=== PATIENT | male | born 1955 | race Native Hawaiian/Other Pacific Islander ===

== ENCOUNTER 2016-05-07 13:26 | Outpatient (CLI) | payer OTHER ==
[2016-05-07 13:35] LABS: PLATELET COUNT 246 K/uL (142-355)
== END 2016-05-07 19:53 | disposition home or self-care (01) ==
LOC: LAB 13:26
PROVIDERS: Nurse Practitioner
DX: D75.1 Secondary polycythemia (principal)
CPT/HCPCS: 85027

== ENCOUNTER 2016-06-05 11:08 | Outpatient (CLI) | payer OTHER ==
[2016-06-05 11:23] LABS: PLATELET COUNT 260 K/uL (142-355)
== END 2016-06-05 20:11 | disposition home or self-care (01) ==
LOC: LAB 11:08
PROVIDERS: Nurse Practitioner
DX: D75.1 Secondary polycythemia (principal)
CPT/HCPCS: 85027

== ENCOUNTER 2016-06-19 14:36 | Outpatient (CLI) | payer OTHER ==
[2016-06-19 16:18] LABS: PLATELET COUNT 250 K/uL (142-355)
== END 2016-06-19 15:36 | disposition home or self-care (01) ==
LOC: LAB 14:36
PROVIDERS: Student in an Organized Health Care Education/Training Program
DX: D75.1 Secondary polycythemia (principal); I69.331 Monoplegia of upper limb following cerebral infarction affecting right dominant side; K21.9 Gastro-esophageal reflux disease without esophagitis; I10 Essential (primary) hypertension; F41.1 Generalized anxiety disorder
CPT/HCPCS: 85027

== ENCOUNTER 2016-07-17 11:44 | Outpatient (CLI) | payer OTHER ==
[2016-07-17 12:57] LABS: PLATELET COUNT 248 K/uL (142-355)
== END 2016-07-17 19:13 | disposition home or self-care (01) ==
LOC: LAB 11:44
PROVIDERS: Nurse Practitioner
DX: D75.1 Secondary polycythemia (principal)
CPT/HCPCS: 85027

== ENCOUNTER 2016-08-29 11:06 | Outpatient (CLI) | payer OTHER ==
[2016-08-29 11:15] LABS: PLATELET COUNT 244 K/uL (142-355)
== END 2016-08-29 19:08 | disposition home or self-care (01) ==
LOC: LAB 11:06
PROVIDERS: Student in an Organized Health Care Education/Training Program
DX: D75.1 Secondary polycythemia (principal)
CPT/HCPCS: 85027

== ENCOUNTER 2016-09-24 10:38 | Outpatient (CLI) | payer OTHER ==
[2016-09-24 10:47] LABS: PLATELET COUNT 246 K/uL (142-355)
== END 2016-09-24 11:30 | disposition home or self-care (01) ==
LOC: LAB 10:38
PROVIDERS: Student in an Organized Health Care Education/Training Program
DX: D75.1 Secondary polycythemia (principal)
CPT/HCPCS: 85027

== ENCOUNTER 2016-10-22 15:13 | Outpatient (CLI) | payer OTHER ==
[2016-10-22 15:23] LABS: PLATELET COUNT 236 K/uL (142-355)
== END 2016-10-22 19:12 | disposition home or self-care (01) ==
LOC: LAB 15:13
PROVIDERS: Student in an Organized Health Care Education/Training Program
DX: D75.1 Secondary polycythemia (principal); I69.331 Monoplegia of upper limb following cerebral infarction affecting right dominant side
CPT/HCPCS: 85027

== ENCOUNTER 2016-11-26 15:44 | Outpatient (CLI) | payer OTHER ==
[2016-11-26 15:54] LABS: PLATELET COUNT 295 K/uL (142-355)
== END 2016-11-26 16:45 | disposition home or self-care (01) ==
LOC: LAB 15:44
PROVIDERS: Student in an Organized Health Care Education/Training Program
DX: D75.1 Secondary polycythemia (principal)
CPT/HCPCS: 85027

== ENCOUNTER 2016-12-24 14:03 | Outpatient (CLI) | payer OTHER ==
[2016-12-24 14:26] LABS: PLATELET COUNT 273 K/uL (142-355)
== END 2016-12-24 19:04 | disposition home or self-care (01) ==
LOC: LAB 14:03
PROVIDERS: Student in an Organized Health Care Education/Training Program
DX: D75.1 Secondary polycythemia (principal); I69.331 Monoplegia of upper limb following cerebral infarction affecting right dominant side; K21.9 Gastro-esophageal reflux disease without esophagitis; I10 Essential (primary) hypertension; F41.1 Generalized anxiety disorder
CPT/HCPCS: 85027

== ENCOUNTER 2017-01-21 14:06 | Outpatient (CLI) | payer OTHER ==
[2017-01-21 14:18] LABS: PLATELET COUNT 293 K/uL (142-355)
== END 2017-01-21 15:10 | disposition home or self-care (01) ==
LOC: LAB 14:06
PROVIDERS: Student in an Organized Health Care Education/Training Program
DX: D75.1 Secondary polycythemia (principal); I10 Essential (primary) hypertension
CPT/HCPCS: 85027

== ENCOUNTER 2017-02-18 14:00 | Outpatient (CLI) | payer OTHER ==
[2017-02-18 14:19] LABS: PLATELET COUNT 278 K/uL (142-355)
== END 2017-02-18 15:00 | disposition home or self-care (01) ==
LOC: LAB 14:00
PROVIDERS: Student in an Organized Health Care Education/Training Program
DX: I10 Essential (primary) hypertension (principal); D75.1 Secondary polycythemia
CPT/HCPCS: 85027

== ENCOUNTER 2017-03-18 14:52 | Outpatient (CLI) | payer OTHER ==
[2017-03-18 15:13] LABS: PLATELET COUNT 290 K/uL (142-355)
== END 2017-03-18 15:55 | disposition home or self-care (01) ==
LOC: LAB 14:52
PROVIDERS: Student in an Organized Health Care Education/Training Program
DX: D75.1 Secondary polycythemia (principal)
CPT/HCPCS: 85027

== ENCOUNTER 2017-04-29 14:27 | Outpatient (CLI) | payer OTHER ==
[2017-04-29 14:46] LABS: PLATELET COUNT 269 K/uL (142-355)
== END 2017-04-29 19:31 | disposition home or self-care (01) ==
LOC: LAB 14:27
PROVIDERS: Student in an Organized Health Care Education/Training Program
DX: D75.1 Secondary polycythemia (principal)
CPT/HCPCS: 85027

== ENCOUNTER 2017-05-27 14:06 | Outpatient (CLI) | payer OTHER ==
[2017-05-27 14:16] LABS: PLATELET COUNT 281 K/uL (142-355)
== END 2017-05-27 19:06 | disposition home or self-care (01) ==
LOC: LAB 14:06
PROVIDERS: Student in an Organized Health Care Education/Training Program
DX: D75.1 Secondary polycythemia (principal)
CPT/HCPCS: 85027

== ENCOUNTER 2017-06-24 15:15 | Outpatient (CLI) | payer OTHER ==
[2017-06-24 15:31] LABS: PLATELET COUNT 252 K/uL (142-355)
== END 2017-06-24 19:52 | disposition home or self-care (01) ==
LOC: LAB 15:15
PROVIDERS: Student in an Organized Health Care Education/Training Program
DX: D75.1 Secondary polycythemia (principal); I69.331 Monoplegia of upper limb following cerebral infarction affecting right dominant side; K21.9 Gastro-esophageal reflux disease without esophagitis; I10 Essential (primary) hypertension; F41.1 Generalized anxiety disorder
CPT/HCPCS: 85027

== ENCOUNTER 2017-07-22 11:21 | Outpatient (CLI) | payer OTHER ==
[2017-07-22 11:44] LABS: PLATELET COUNT 265 K/uL (142-355)
== END 2017-07-22 18:00 ==
LOC: LAB 11:21
PROVIDERS: Student in an Organized Health Care Education/Training Program
DX: D75.1 Secondary polycythemia (principal); I10 Essential (primary) hypertension
CPT/HCPCS: 85027

== ENCOUNTER 2017-08-19 11:05 | Outpatient (CLI) | payer OTHER ==
[2017-08-19 11:17] LABS: PLATELET COUNT 244 K/uL (142-355)
== END 2017-08-19 20:02 | disposition home or self-care (01) ==
LOC: LAB 11:05
PROVIDERS: Student in an Organized Health Care Education/Training Program
DX: D75.1 Secondary polycythemia (principal)
CPT/HCPCS: 85027

== ENCOUNTER 2017-09-16 11:34 | Outpatient (CLI) | payer OTHER ==
[2017-09-16 11:59] LABS: PLATELET COUNT 233 K/uL (142-355)
== END 2017-09-16 19:59 | disposition home or self-care (01) ==
LOC: LAB 11:34
PROVIDERS: Student in an Organized Health Care Education/Training Program
DX: D75.1 Secondary polycythemia (principal)
CPT/HCPCS: 85027

== ENCOUNTER 2017-10-14 11:20 | Outpatient (CLI) | payer OTHER ==
[2017-10-14 12:20] LABS: PLATELET COUNT 239 K/uL (142-355)
== END 2017-10-14 22:50 | disposition home or self-care (01) ==
LOC: LAB 11:20
PROVIDERS: Student in an Organized Health Care Education/Training Program
DX: D75.1 Secondary polycythemia (principal); I10 Essential (primary) hypertension
CPT/HCPCS: 85027

== ENCOUNTER 2017-11-11 12:55 | Outpatient (CLI) | payer OTHER ==
[2017-11-11 13:36] LABS: PLATELET COUNT 223 K/uL (142-355)
== END 2017-11-11 19:10 | disposition home or self-care (01) ==
LOC: LAB 12:55
PROVIDERS: Student in an Organized Health Care Education/Training Program
DX: D75.1 Secondary polycythemia (principal); I10 Essential (primary) hypertension
CPT/HCPCS: 85027

== ENCOUNTER 2017-12-10 11:37 | Outpatient (CLI) | payer OTHER ==
[2017-12-10 12:15] LABS: PLATELET COUNT 229 K/uL (142-355)
== END 2017-12-10 22:20 | disposition home or self-care (01) ==
LOC: LAB 11:37
PROVIDERS: Student in an Organized Health Care Education/Training Program
DX: D75.1 Secondary polycythemia (principal); I10 Essential (primary) hypertension
CPT/HCPCS: 85027

== ENCOUNTER 2018-01-07 14:24 | Outpatient (CLI) | payer OTHER ==
[2018-01-07 14:38] LABS: PLATELET COUNT 244 K/uL (142-355)
== END 2018-01-07 19:37 | disposition home or self-care (01) ==
LOC: LAB 14:24
PROVIDERS: Student in an Organized Health Care Education/Training Program
DX: D75.1 Secondary polycythemia (principal); I10 Essential (primary) hypertension
CPT/HCPCS: 85027

== ENCOUNTER 2018-02-03 11:40 | Outpatient (CLI) | payer OTHER ==
[2018-02-03 12:52] LABS: PLATELET COUNT 261 K/uL (142-355)
== END 2018-02-03 23:05 | disposition home or self-care (01) ==
LOC: LAB 11:40
PROVIDERS: Student in an Organized Health Care Education/Training Program
DX: D75.1 Secondary polycythemia (principal); I69.331 Monoplegia of upper limb following cerebral infarction affecting right dominant side; K21.9 Gastro-esophageal reflux disease without esophagitis; I10 Essential (primary) hypertension; R25.1 Tremor, unspecified; F41.1 Generalized anxiety disorder
CPT/HCPCS: 85027

== ENCOUNTER 2018-03-17 12:48 | Outpatient (CLI) | payer OTHER ==
[2018-03-17 13:17] LABS: PLATELET COUNT 253 K/uL (142-355)
== END 2018-03-17 22:08 | disposition home or self-care (01) ==
LOC: LAB 12:48
PROVIDERS: Student in an Organized Health Care Education/Training Program
DX: D75.1 Secondary polycythemia (principal); I10 Essential (primary) hypertension
CPT/HCPCS: 85027

== ENCOUNTER 2018-04-27 14:49 | Outpatient (CLI) | payer OTHER ==
[2018-04-27 15:42] LABS: PLATELET COUNT 281 K/uL (142-355)
== END 2018-04-27 20:04 | disposition home or self-care (01) ==
LOC: LAB 14:49
PROVIDERS: Student in an Organized Health Care Education/Training Program
DX: D75.1 Secondary polycythemia (principal); I10 Essential (primary) hypertension
CPT/HCPCS: 85027

== ENCOUNTER 2018-05-26 12:12 | Outpatient (CLI) | payer OTHER ==
[2018-05-26 12:52] LABS: PLATELET COUNT 253 K/uL (142-355)
== END 2018-05-26 21:10 | disposition home or self-care (01) ==
LOC: LAB 12:12
PROVIDERS: Student in an Organized Health Care Education/Training Program
DX: D75.1 Secondary polycythemia (principal)
CPT/HCPCS: 85027

== ENCOUNTER 2018-06-23 11:42 | Outpatient (CLI) | payer OTHER ==
[2018-06-23 12:10] LABS: PLATELET COUNT 260 K/uL (142-355)
== END 2018-06-23 23:16 | disposition home or self-care (01) ==
LOC: LAB 11:42
PROVIDERS: Student in an Organized Health Care Education/Training Program
DX: D75.1 Secondary polycythemia (principal)
CPT/HCPCS: 85027

== ENCOUNTER 2018-07-21 10:50 | Outpatient (CLI) | payer OTHER ==
[2018-07-21 11:01] LABS: PLATELET COUNT 234 K/uL (142-355)
== END 2018-07-21 22:47 | disposition home or self-care (01) ==
LOC: LAB 10:50
PROVIDERS: Student in an Organized Health Care Education/Training Program
DX: D75.1 Secondary polycythemia (principal)
CPT/HCPCS: 85027

== ENCOUNTER 2018-08-18 11:52 | Outpatient (CLI) | payer OTHER ==
[2018-08-18 13:09] LABS: PLATELET COUNT 229 K/uL (142-355)
== END 2018-08-18 22:48 | disposition home or self-care (01) ==
LOC: LAB 11:52
PROVIDERS: Student in an Organized Health Care Education/Training Program
DX: D75.1 Secondary polycythemia (principal)
CPT/HCPCS: 85027

== ENCOUNTER 2018-09-29 13:12 | Outpatient (CLI) | payer OTHER ==
[2018-09-29 13:27] LABS: PLATELET COUNT 271 K/uL (142-355)
== END 2018-09-29 20:33 | disposition home or self-care (01) ==
LOC: LAB 13:12
PROVIDERS: Student in an Organized Health Care Education/Training Program
DX: D75.1 Secondary polycythemia (principal); I69.331 Monoplegia of upper limb following cerebral infarction affecting right dominant side; K21.9 Gastro-esophageal reflux disease without esophagitis; I10 Essential (primary) hypertension; R25.1 Tremor, unspecified; F41.1 Generalized anxiety disorder
CPT/HCPCS: 85027

== ENCOUNTER 2018-10-27 13:34 | Outpatient (CLI) | payer OTHER ==
[2018-10-27 13:46] LABS: PLATELET COUNT 223 K/uL (142-355)
== END 2018-10-27 19:48 | disposition home or self-care (01) ==
LOC: LAB 13:34
PROVIDERS: Nurse Practitioner
DX: D75.1 Secondary polycythemia (principal)
CPT/HCPCS: 85027

== ENCOUNTER 2018-11-24 14:28 | Outpatient (CLI) | payer OTHER ==
[2018-11-24 14:40] LABS: PLATELET COUNT 243 K/uL (142-355)
== END 2018-11-24 22:20 | disposition home or self-care (01) ==
LOC: LAB 14:28
PROVIDERS: Nurse Practitioner
DX: D75.1 Secondary polycythemia (principal)
CPT/HCPCS: 85027

== ENCOUNTER 2018-12-23 11:17 | Outpatient (CLI) | payer OTHER ==
[2018-12-23 11:35] LABS: PLATELET COUNT 281 K/uL (142-355)
== END 2018-12-23 23:59 ==
LOC: LAB 11:17
PROVIDERS: Nurse Practitioner
DX: D75.1 Secondary polycythemia (principal)
CPT/HCPCS: 85027

== ENCOUNTER 2019-01-19 11:21 | Outpatient (CLI) | payer OTHER ==
[2019-01-19 11:38] LABS: PLATELET COUNT 301 K/uL (142-355)
== END 2019-01-19 23:17 | disposition home or self-care (01) ==
LOC: LAB 11:21
PROVIDERS: Nurse Practitioner
DX: D75.1 Secondary polycythemia (principal)
CPT/HCPCS: 85027

== ENCOUNTER 2019-02-16 13:44 | Outpatient (CLI) | payer OTHER ==
[2019-02-16 13:57] LABS: PLATELET COUNT 297 K/uL (142-355)
== END 2019-02-16 19:23 | disposition home or self-care (01) ==
LOC: LAB 13:44
PROVIDERS: Nurse Practitioner
DX: D75.1 Secondary polycythemia (principal)
CPT/HCPCS: 85027

== ENCOUNTER 2019-03-30 10:50 | Outpatient (CLI) | payer OTHER ==
[2019-03-30 11:07] LABS: PLATELET COUNT 264 K/uL (142-355)
== END 2019-03-30 19:37 | disposition home or self-care (01) ==
LOC: LAB 10:50
PROVIDERS: Nurse Practitioner
DX: D75.1 Secondary polycythemia (principal)
CPT/HCPCS: 85027

== ENCOUNTER 2019-04-27 10:04 | Outpatient (CLI) | payer OTHER ==
[2019-04-27 10:26] LABS: PLATELET COUNT 233 K/uL (142-355)
== END 2019-04-27 19:04 | disposition home or self-care (01) ==
LOC: LAB 10:04
PROVIDERS: Internal Medicine
DX: D75.1 Secondary polycythemia (principal)
CPT/HCPCS: 85027

== ENCOUNTER 2019-06-01 12:32 | Outpatient (CLI) | payer OTHER ==
[2019-06-01 12:49] LABS: PLATELET COUNT 219 K/uL (142-355)
== END 2019-06-01 20:13 | disposition home or self-care (01) ==
LOC: LAB 12:32
PROVIDERS: Nurse Practitioner
DX: D75.1 Secondary polycythemia (principal)
CPT/HCPCS: 85027

== ENCOUNTER 2019-06-29 12:24 | Outpatient (CLI) | payer OTHER ==
[2019-06-29 12:37] LABS: PLATELET COUNT 307 K/uL (142-355)
== END 2019-06-29 19:30 | disposition home or self-care (01) ==
LOC: LAB 12:24
PROVIDERS: Nurse Practitioner
DX: D75.1 Secondary polycythemia (principal)
CPT/HCPCS: 85027

== ENCOUNTER 2019-07-27 10:51 | Outpatient (CLI) | payer OTHER ==
[2019-07-27 11:10] LABS: PLATELET COUNT 286 K/uL (142-355)
== END 2019-07-27 20:38 | disposition home or self-care (01) ==
LOC: LAB 10:51
PROVIDERS: Nurse Practitioner
DX: D75.1 Secondary polycythemia (principal)
CPT/HCPCS: 85027

== ENCOUNTER 2019-08-24 12:06 | Outpatient (CLI) | payer OTHER ==
[2019-08-24 12:28] LABS: PLATELET COUNT 265 K/uL (142-355)
== END 2019-08-24 22:34 | disposition home or self-care (01) ==
LOC: LAB 12:06
PROVIDERS: Nurse Practitioner
DX: D75.1 Secondary polycythemia (principal)
CPT/HCPCS: 85027

== ENCOUNTER 2019-09-21 10:34 | Outpatient (CLI) | payer OTHER ==
[2019-09-21 11:17] LABS: PLATELET COUNT 251 K/uL (142-355)
== END 2019-09-21 19:10 | disposition home or self-care (01) ==
LOC: LAB 10:34
PROVIDERS: Nurse Practitioner
DX: D75.1 Secondary polycythemia (principal)
CPT/HCPCS: 85027

== ENCOUNTER 2019-10-05 13:37 | Outpatient (CLI) | payer OTHER | END 2019-10-05 19:13 | disposition home or self-care (01) | LOC: RAD 13:37 | DX: R60.0 Localized edema (principal) ==

== ENCOUNTER 2019-10-19 10:52 | Outpatient (CLI) | payer OTHER ==
[2019-10-19 12:03] LABS: PLATELET COUNT 366 K/uL (142-355)
== END 2019-10-19 20:06 | disposition home or self-care (01) ==
LOC: LAB 10:52
PROVIDERS: Nurse Practitioner
DX: D75.1 Secondary polycythemia (principal)
CPT/HCPCS: 85027

== ENCOUNTER 2019-11-16 10:52 | Outpatient (CLI) | payer OTHER ==
[2019-11-16 11:17] LABS: PLATELET COUNT 256 K/uL (142-355)
== END 2019-11-16 20:37 | disposition home or self-care (01) ==
LOC: LAB 10:52
PROVIDERS: Nurse Practitioner
DX: D75.1 Secondary polycythemia (principal)
CPT/HCPCS: 85027

== ENCOUNTER 2019-12-14 12:18 | Outpatient (CLI) | payer OTHER ==
[2019-12-14 12:34] LABS: PLATELET COUNT 249 K/uL (142-355)
== END 2019-12-14 20:58 | disposition home or self-care (01) ==
LOC: LAB 12:18
PROVIDERS: Nurse Practitioner
DX: D75.1 Secondary polycythemia (principal)
CPT/HCPCS: 85027

== ENCOUNTER 2020-01-12 11:08 | Outpatient (CLI) | payer OTHER ==
[2020-01-12 11:23] LABS: PLATELET COUNT 267 K/uL (142-355)
== END 2020-01-12 23:26 | disposition home or self-care (01) ==
LOC: LAB 11:08
PROVIDERS: Nurse Practitioner
DX: D75.1 Secondary polycythemia (principal)
CPT/HCPCS: 85027

== ENCOUNTER 2020-02-10 10:18 | Outpatient (CLI) | payer OTHER ==
[2020-02-10 10:27] LABS: PLATELET COUNT 255 K/uL (142-355)
== END 2020-02-10 19:29 | disposition home or self-care (01) ==
LOC: LAB 10:18
PROVIDERS: Nurse Practitioner
DX: D75.1 Secondary polycythemia (principal)
CPT/HCPCS: 85027

== ENCOUNTER 2020-03-07 13:00 | Outpatient (CLI) | payer OTHER ==
[2020-03-07 13:10] LABS: PLATELET COUNT 230 K/uL (142-355)
== END 2020-03-07 23:36 | disposition home or self-care (01) ==
LOC: LAB 13:00
PROVIDERS: Nurse Practitioner
DX: D75.1 Secondary polycythemia (principal)
CPT/HCPCS: 85027